=== PATIENT | male | born 1980 | race Hispanic/Latino ===

== ENCOUNTER 2017-08-15 14:36 | Emergency (ER) | payer BC ==
[2017-08-15 14:52] VITALS: BP 160/90; PULSE 72; RESP 20; TEMP 98.5; O2SAT 99
--- NOTE | 2017-08-15 14:59 | C.PDOC ---
History Of Present Illness 37-year-old male, presents to the emergency department with complaints of foreign body ingestion. Patient states he was eating fish for lunch, and feels as thought there is a a fish bone stuck in tonsil. He denies any shortness of breath, chest pain, throat swelling, nausea/vomiting, or any other associated symptoms, No other complaints at this time. Time Seen by Provider: 08/15/17 14:50 Chief Complaint (Nursing): Medical Clearance History Per: Patient History/Exam Limitations: no limitations Past Medical History Reviewed: Historical Data, Nursing Documentation, Vital Signs Vital Signs: Last Vital Signs Temp 98.5 F 08/15/17 14:45 Pulse 72 08/15/17 14:45 Resp 20 08/15/17 14:45 BP 160/90 H 08/15/17 14:45 Pulse Ox 99 08/15/17 15:23 Family History: States: No Known Family Hx - Social History Hx Alcohol Use: No Hx Substance Use: No - Immunization History Hx Tetanus Toxoid Vaccination: No Hx Influenza Vaccination: No Hx Pneumococcal Vaccination: No Review Of Systems Constitutional: Negative for: Fever, Chills Cardiovascular: Negative for: Chest Pain Respiratory: Negative for: Cough, Shortness of Breath, Sputum Gastrointestinal: Negative for: Nausea, Vomiting Skin: Negative for: Rash Neurological: Negative for: Weakness, Numbness Physical Exam - Physical Exam Appears: Non-toxic, No Acute Distress Skin: Normal Color, Warm, Dry, No Rash Head: Atraumatic, Normacephalic Eye(s): bilateral: Normal Inspection Nose: Normal Oral Mucosa: Moist Throat: No Drooling, Other ((+)fish bone visualized in right tonsil. No airway compromise) Neck: Normal ROM Respiratory: No Accessory Muscle Use (No acute respiratory distress) Extremity: Normal ROM, No Deformity, No Swelling Neurological/Psych: Oriented x3, Normal Speech ED Course And Treatment O2 Sat by Pulse Oximetry: 99 Pulse Ox Interpretation: Normal (RA) Progress Note: Fish bone removed with alligator forceps without difficulty. Symptoms resolved. Medical Decision Making Medical Decision Making: fish bone removed with alligator forceps Disposition Counseled Patient/Family Regarding: Diagnosis - Disposition Referrals: [facility] [Outside] Disposition: HOME/ ROUTINE Disposition Time: 14:57 Condition: IMPROVED Instructions: Removal of Foreign Body, Swallowed, Adult Forms: [facility] ([facility]) - Clinical Impression Clinical Impression: Swallowed foreign body - Scribe Statement The provider has reviewed the documentation as recorded by the Scribe (Parvin Parmar) All medical record entries made by the Scribe were at my direction and personally dictated by me. I have reviewed the chart and agree that the record accurately reflects my personal performance of the history, physical exam, medical decision making, and the department course for this patient. I have also personally directed, reviewed, and agree with the discharge instructions and disposition.
== END 2017-08-15 15:25 | disposition home or self-care (01) ==
LOC: C.ER 14:36
DX: T17.228A Food in pharynx causing other injury, initial encounter (principal); X58.XXXA Exposure to other specified factors, initial encounter; Y92.89 Other specified places as the place of occurrence of the external cause